=== PATIENT | female | born 1955 | race Caucasian/White ===

== ENCOUNTER 2018-03-09 06:40 | Day surgery (SDC) | payer MEDICARE, MEDICAID ==
--- NOTE | 2018-03-06 14:33 | NUR ---
PATIENT ASSISTED OOB AND TO [place] AROUND ROOM. GAIT STEADY. PATIENT GETTING DRESSED INDEPENDENTLY.
[~2018-03-09] VITALS: Ht 160 cm; Wt 71.2 kg
[~2018-03-09 06:40] MED LIST: ALBUTEROL SULF8.5 GM IH; CLONAZEPAM1 MG PO; CYCLOBENZAPRINE10 MG PO; DICLOFENAC SOD100 MG PO; DIFLUCAN150 MG PO; EFFEXOR XR150 MG PO; FAMOTIDINE20 MG PO; FAMOTIDINE40 MG PO; HYDROMORPHONE HC4 MG PO; HYDROXYZINE HCL50 MG PO; IBUPROFEN400 MG PO; IBUPROFEN800 MG PO; LAMICTAL100 MG PO; LMX TOP; METRONIDAZOLE500 MG PO; MIRALAX17 GM PO; NAPROXEN375 MG PO; NORCO 10-325 T1 EACH PO; NORCO 5-325 TA1 EACH PO; OXYCODONE HCL10 MG PO; SUMATRIPTAN SUC50 MG PO; VERAPAMIL ER120 MG PO; VISTARIL50 MG PO; XARELTO10 MG PO
[2018-03-09] MEDS ORDERED: SENNA LAX8.6 MG PO (10:16)
[2018-03-09] MEDS ORDERED: OXYCODONE HCL5 MG PO (10:17)
--- NOTE | 2018-03-09 10:35 | NUR ---
03/09/18 1035 Cathi Abdullahi 1013 PT ARRIVED IN PACU SLEEPY WITH NO C/O'S. 1025 CRYO CUFF PLACED ON L SHOULDER. 1030 OXYGEN REMOVED. SATS 96% ON RA.
--- NOTE | 2018-03-09 11:01 | NUR ---
PT IS BACK TO FROM PACU. SHE IS DROWSY, WILL WAKE UP TO VERBAL STIMULI. SHE IS QUICK TO FALL BACK ASLEEP. NO C/O'S PAIN. NO ADDITIONAL NEEDS AT THIS TIME.
--- NOTE | 2018-03-09 11:50 | NUR ---
LE 1140: PT REQUESTS TO GET UP AND USE THE RESTROOM. SHE IS ASSISTED UP OOB. SHE AMBULATES HERSELF TO THE BATHROOM AND BACK TO BED. VOID WAS QUANTITY SUFFICIENT. SHE REQUESTS SOMETHING TO EAT AND DRINK, SHE IS GIVEN ICE WATER, GRAPE JUICE, SAKINA CRACKERS. NO ADDITIONAL NEEDS AT THIS TIME.
--- NOTE | 2018-03-09 12:11 | NUR ---
PT IS TOLERATING FLUIDS AND CRACKERS. SHE HAS MET DC CRITERIA AT THIS TIME. SHE REQUESTS THAT WE CALL HER DAUGHTER TO LET HER KNOW. NO ADDITIONAL NEEDS AT THIS TIME.
--- NOTE | 2018-03-09 12:23 | NUR ---
PT HAS MET DC CRITERIA. PT'S DAUGHTER IS ON HER WAY. SHE IS GIVEN VERBAL DC INSTRUCTIONS. SHE VERBALIZES UNDERSTANDING. SHE IS EDUCATED ON HOW BEST TO DRESS HERSELF AND TO OPEN HER CURTAIN WHEN READY.
--- NOTE | 2018-03-09 12:42 | NUR ---
PT ALERT, ORIENTED AND PLEASANT. SHE SEEMS INFORMED, HAD FEW QUESTIONS AND STATED HER DAUGHTER WILL TAKE HER HOME FOLLOWING DC. PT REQUESTED PRAYER, WILL CONTINUE TO FOLLOW NEEDED
--- NOTE | 2018-03-10 16:47 | OR ---
[facility] [address] [place], [place] [address] Signed DATE OF OPERATION: 03/09/2018 SURGEON: Loly Wallace MD PREOPERATIVE DIAGNOSES: 1. Rotator cuff tear, left shoulder. 2. Biceps tear, left shoulder. POSTOPERATIVE DIAGNOSES: 1. Rotator cuff tear, left shoulder. 2. Biceps tear, left shoulder. PROCEDURE PERFORMED: Left shoulder arthroscopy with rotator cuff repair. ANESTHESIA: General. SUPPLY CHAIN PLANNER: Sharri Harris PA-C. Sharri was present and critical for positioning, camera holding, and wound closure. BLOOD LOSS: Minimal. IMPLANTS: One 4.75 SwiveLock with FiberTape. BRIEF HISTORY: Deloris is a 62-year-old female with prior history of right rotator cuff tear that was repaired rather poorly. Several debridements after infection were undertaken as well. She presented with left shoulder pain and weakness. MRI was consistent with a small rotator cuff tear and biceps tear. Risks and benefits of operative treatment were discussed with her and she elected to proceed. Once consent was obtained, she was taken to the operating room. After adequate anesthesia, she was placed in a beach chair position. All downside pressure points were well padded. The shoulder was prepped and draped in a standard sterile fashion. Standard posterior portal was made and the scope was introduced in the shoulder. ARTHROSCOPIC FINDINGS: Electronically Signed By: LOLY WALLACE MD 03/10/18 1647 PATIENT NAME: DELORIS BURROWS OPERATIVE REPORT DATE OF : 57 REPORT #: [id number] PHYSICIAN: LOLY WALLACE MD PCP: JAH BARBER REPORT IS CONFIDENTIAL AND NOT TO BE RELEASED WITHOUT AUTHORIZATION [facility] [address] [place], [place] [address] Signed The biceps was noted to be torn about a cm and half from its insertion on the glenoid. The stump was then folded back underneath itself. The shoulder showed minimal synovitis. There was no significant arthritis. The labrum was intact and stable. The undersurface of the rotator cuff was noted to be torn. The scope was then withdrawn. Findings in the subacromial space showed [id number] bursitis with a 1 to 1.5 cm tear. DESCRIPTION OF OPERATION: Standard diagnostic arthroscopy was undertaken as noted above. The standard anterior portal was made using outside-in technique. The shaver was then used to debride the biceps stump and part of the labrum. This was taken back to a stable rim. The undersurface of the rotator cuff was then debrided. The scope was withdrawn, placed in the subacromial space, and a bursectomy was performed. Her acromion was type 1. The rotator cuff tear was identified and the margins were cleaned up and the necrotic tissue was removed. The bone was then roughened using the shaver. Once this was accomplished, a FiberTape suture was placed in an inverted mattress configuration through the tear. A single 4.75 anchor was then placed at the corner of the tuberosity and impacted drawing the tear down to the stable bony bed. The anchor was then screwed into place and the suture ends were cut. Excellent stability of the tear was noted on rotation of the shoulder. The scope was then withdrawn. Portals were closed with 3-0 nylon and dressed with ProWick dressing. She tolerated the procedure well. All sponge, needle, and instrument counts were correct. Loly Wallace MD BA/CARLOSL /[id number] Copies: ~ Electronically Signed By: LOLY WALLACE MD 03/10/18 1647 PATIENT NAME: DELORIS BURROWS OPERATIVE REPORT DATE OF : 57 REPORT #: [id number] PHYSICIAN: LOLY WALLACE MD PCP: JAH BARBER REPORT IS CONFIDENTIAL AND NOT TO BE RELEASED WITHOUT AUTHORIZATION
== END 2018-03-09 12:25 | disposition home or self-care (01) ==
LOC: DS 06:40 → OPS 06:40 → DS 03-19 06:45 → OPS 03-19 08:30
PROVIDERS: Specialist
PROC: 0LQ24ZZ Repair Left Shoulder Tendon, Percutaneous Endoscopic Approach (ICD-10-PCS; principal; 2018-03-09 09:45)
DX: M75.102 Unspecified rotator cuff tear or rupture of left shoulder, not specified as traumatic (principal); S46.212A Strain of muscle, fascia and tendon of other parts of biceps, left arm, initial encounter; I10 Essential (primary) hypertension; F31.9 Bipolar disorder, unspecified; M19.90 Unspecified osteoarthritis, unspecified site; Z79.899 Other long term (current) drug therapy; Z79.1 Long term (current) use of non-steroidal anti-inflammatories (NSAID)
CPT/HCPCS: 01630; 64415; 76942; C1713; J0330; J0690; J1100; J2250; J2370; J2405; J2704; J2795; J3010; J7120

== ENCOUNTER 2019-03-12 23:44 | Emergency (ER) | payer MEDICARE, MEDICAID ==
[~2019-03-12] VITALS: Ht 160 cm; Wt 72.6 kg
[~2019-03-12 23:44] MED LIST changes: +OXYCODONE HCL5 MG PO; +PRILOSEC OTC20 MG PO; +SENNA LAX8.6 MG PO; +ZESTRIL10 MG PO
[2019-03-12] MEDS ORDERED: GEMFIBROZIL600 MG PO (23:56)
== END 2019-03-13 00:15 | disposition home or self-care (01) ==
LOC: ED 23:44
DX: Z48.817 Encounter for surgical aftercare following surgery on the skin and subcutaneous tissue (principal); Z91.040 Latex allergy status; Z88.8 Allergy status to other drugs, medicaments and biological substances; Z79.899 Other long term (current) drug therapy
CPT/HCPCS: 99283

== ENCOUNTER 2020-08-13 14:28 | Emergency (ER) | payer MEDICARE, OTHER ==
[~2020-08-13] VITALS: Ht 160 cm; Wt 72.6 kg
[~2020-08-13 14:28] MED LIST changes: +GEMFIBROZIL600 MG PO
[2020-08-13] MEDS ORDERED: AMOXICILLIN500 MG PO (14:48)
[2020-08-13] MEDS ORDERED: CELECOXIB200 MG PO (14:48)
[2020-08-13] MEDS ORDERED: CEPHALEXIN500 MG PO (14:48)
== END 2020-08-13 15:57 | disposition home or self-care (01) ==
LOC: ED 14:28
DX: S01.01XA Laceration without foreign body of scalp, initial encounter (principal); S50.01XA Contusion of right elbow, initial encounter; W01.198A Fall on same level from slipping, tripping and stumbling with subsequent striking against other object, initial encounter; Z91.040 Latex allergy status; Z88.8 Allergy status to other drugs, medicaments and biological substances; Z79.899 Other long term (current) drug therapy
CPT/HCPCS: 12001; 73080; 99283-25

== ENCOUNTER 2020-09-16 20:08 | Emergency (ER) | payer MEDICARE, OTHER ==
[~2020-09-16] VITALS: Ht 160 cm; Wt 72.6 kg
[~2020-09-16 20:08] MED LIST changes: +AMOXICILLIN500 MG PO; +CELECOXIB200 MG PO; +CEPHALEXIN500 MG PO
[2020-09-16] MEDS ORDERED: CELECOXIB200 MG PO (21:08)
[2020-09-16] MEDS ORDERED: CYCLOBENZAPRINE10 MG PO (21:08)
[2020-09-16] MEDS ORDERED: EFFEXOR XR150 MG PO (21:08)
== END 2020-09-16 21:25 | disposition home or self-care (01) ==
LOC: ED 20:08
DX: Z76.0 Encounter for issue of repeat prescription (principal); Z91.040 Latex allergy status; Z88.8 Allergy status to other drugs, medicaments and biological substances; Z79.899 Other long term (current) drug therapy
CPT/HCPCS: 99281

== ENCOUNTER 2021-11-16 10:19 | Emergency (ER) | payer OTHER, MEDICARE ==
[~2021-11-16] VITALS: Ht 160 cm; Wt 64.9 kg
--- OUTSIDE RECORDS SUMMARY | 2021-11-16 10:20 | XMS ---
PreManage Notification: GABRIELA BURROWS Security General Service Technician Events No recent Security Events currently on file CRITERIA MET - [facility] CARE PROVIDERS BRITNI NELSON [facility]: [facility] PHONE: [phone] ADAM LAWRENCE Family Medicine Current PHONE: Unknown Madisyn has no Care Guidelines for this patient. [place] VISIT COUNT (12 MO.) Ava Corbin TOTAL 1 NOTE: Visits indicate total known visits. ED/UCC VISIT TRACKING (12 MO.) 11/16/2021 10:19 [facility] [place] TYPE: Emergency COMPLAINT: - DOG BITE INPATIENT VISIT TRACKING (12 MO.) No inpatient visits to display in this time frame [id number]
[2021-11-16] MEDS ORDERED: AMOX TR-K CLV1 EAC1 PO (12:43)
== END 2021-11-16 13:05 | disposition home or self-care (01) ==
LOC: ED 10:19
DX: S91.154A Open bite of right lesser toe(s) without damage to nail, initial encounter (principal); Z23 Encounter for immunization; W54.0XXA Bitten by dog, initial encounter
CPT/HCPCS: 12001; 73660; 90471; 90715; 99283-25; A9270

== ENCOUNTER 2024-08-09 19:40 | Emergency (ER) | payer MEDICARE, OTHER ==
[~2024-08-09] VITALS: Ht 157.5 cm; Wt 64.2 kg
[~2024-08-09 19:40] MED LIST changes: +AMOX TR-K CLV1 EAC1 PO
--- OUTSIDE RECORDS SUMMARY | 2024-08-09 19:47 | XMS ---
PreManage Notification: GABRIELA BURROWS Security Media Strategist Events No recent Security Events currently on file CRITERIA MET - Group Notification CARE PROVIDERS -, [facility] Dentist: Tank Tender Current Michelle PHONE: [phone] -Michelle- Dentist: Tank Tender Current [facility] PHONE: [phone] BRITNI NELSON [facility]: [facility] PHONE: Unknown ADAM LAWRENCE [facility] Current PHONE: Unknown JULI NIETO Internal Medicine Current PHONE: Unknown Madisyn has no Care Guidelines for this patient. [place] VISIT COUNT (12 MO.) 2 VERNELL Corbin TOTAL 2 NOTE: Visits indicate total known visits. ED/UCC VISIT TRACKING (12 MO.) 08/09/2024 19:41 [facility] [place] TYPE: Emergency COMPLAINT: - EYE INJURY 04/29/2024 15:39 [facility] [place] TYPE: Emergency COMPLAINT: - SORE THROAT/COUGH INPATIENT VISIT TRACKING (12 MO.) No inpatient visits to display in this time frame [email or web address]
[2024-08-09] MEDS ORDERED: diphenhydrAMINE HCL 50 MG/ML VIAL IV ONE (20:15)
[2024-08-09] MEDS ORDERED: DEXAMETHASONE SOD PHOS 10 MG/ML VIAL IV ONE (20:15)
[2024-08-09] MEDS ORDERED: FAMOTIDINE 20 MG TAB PO ONE (20:15)
[2024-08-09] MEDS ORDERED: CETIRIZINE HCL 10 MG TAB PO ONE (20:15)
[2024-08-09] MEDS ORDERED: METOPROLOL SUCC50 MG PO (21:50)
[2024-08-09] MEDS ORDERED: ASPERCREME1 EACH TOP (21:50)
[2024-08-09] MEDS ORDERED: ZYRTEC10 MG PO (22:38)
[2024-08-09] MEDS ORDERED: methylPREDNISolone 4 MG HOME.PACK PO ONE (22:45)
[2024-08-09 23:04] VITALS: BP 130/74
== END 2024-08-09 23:06 | disposition home or self-care (01) ==
LOC: ED 19:40
DX: T63.441A Toxic effect of venom of bees, accidental (unintentional), initial encounter (principal); Z79.899 Other long term (current) drug therapy; Z91.040 Latex allergy status
CPT/HCPCS: 96374; 96375; 99282-25; J1100; J1200

== ENCOUNTER 2025-02-11 13:38 | Emergency (ER) | payer OTHER, MEDICARE ==
[~2025-02-11] VITALS: Ht 157.5 cm; Wt 66.0 kg
[~2025-02-11 13:38] MED LIST changes: +ASPERCREME1 EACH TOP; +METOPROLOL SUCC50 MG PO; +ZYRTEC10 MG PO
--- OUTSIDE RECORDS SUMMARY | 2025-02-11 13:45 | XMS ---
PreManage Notification: GABRIELA BURROWS Security Commercial Production Editor Events No recent Security Events currently on file CRITERIA MET - Group Notification CARE PROVIDERS -, [facility]ist: Physicist [employer] Current Michelle PHONE: [phone] -Michelle- Dentist: Physicist [facility] Current [facility] PHONE: [phone] BRITNI NELSON [facility]: [facility] Health [facility] PHONE: Unknown ADAM LAWRENCE Family [facility] Current PHONE: Unknown JULI NIETO Internal Medicine Current PHONE: Unknown Madisyn has no Care Guidelines for this patient. [place] VISIT COUNT (12 MO.) [address] [facility] TOTAL 3 NOTE: Visits indicate total known visits. ED/UCC VISIT TRACKING (12 MO.) 02/11/2025 13:39 [facility] [place] TYPE: Emergency COMPLAINT: - LT WRIST INJURY 08/09/2024 19:41 [facility] [place] TYPE: Emergency COMPLAINT: - EYE INJURY DIAGNOSES: - Latex allergy status - Other long term care pharmacist (current) drug therapy - Other specified disorders of eye and adnexa - Toxic effect of venom of bees, accidental (unintentional), initial encounter 04/29/2024 15:39 [facility] [place] TYPE: Emergency COMPLAINT: - SORE THROAT/COUGH INPATIENT VISIT TRACKING (12 MO.) No inpatient visits to display in this time frame [id number]
[2025-02-11] MEDS ORDERED: TRAZODONE HCL50 MG PO (16:34)
[2025-02-11 17:14] VITALS: BP 000/000
== END 2025-02-11 17:16 | disposition home or self-care (01) ==
LOC: ED 13:38
DX: S63.502A Unspecified sprain of left wrist, initial encounter (principal); W54.1XXA Struck by dog, initial encounter; Z79.899 Other long term (current) drug therapy; Z91.040 Latex allergy status; Z88.8 Allergy status to other drugs, medicaments and biological substances
CPT/HCPCS: 73110; 99283